=== PATIENT | male | born 1980 | race Caucasian/White ===

== ENCOUNTER 2018-04-22 08:43 | Outpatient (CLI) | payer BC ==
--- NOTE | 2018-04-22 15:45 | MRI Report ---
Reason: CHRONIC BILATERAL LOW BACK PAIN WITHOUT SCIATICA Procedure Date: 04/22/2018 Accession Number: [id number] / [id number] Procedure: MRI - Lumbar Spine W/O CPT Code: FULL RESULT: EXAM: MRI LUMBAR SPINE WITHOUT CONTRAST EXAM DATE: 04/22/2018 09:27 AM. CLINICAL HISTORY: Chronic bilateral low back pain without sciatica. COMPARISON: None. TECHNIQUE: Multiplanar, multisequence T1-weighted and fluid-sensitive sequences of the lumbar spine from T12 to S1 without contrast. Other: None. FINDINGS: Numbering assumes 5 [id number] lumbar-type vertebral bodies. The distal tip of the conus medullaris is seen at the level of the L1 superior endplate. No suspicious marrow replacement is seen. No acute or subacute endplate infraction is identified. Grade 1 retrolisthesis of L4 relative to L5 is present. L1 through L4: No posterior disk protrusion. L4-L5: Minimal loss of disk space height is seen. A minimal posterior disk protrusion is seen. A small amount of disk material extends inferior to the disk space. L5-S1: A minimal shallow right-sided disk protrusion is seen with a posterior annular fissure. IMPRESSION: 1. A minimal broad-based posterior disk protrusion is seen at L4-L5 with disk material extending inferior to the disk space. 2. A minimal right-sided disk protrusion with an annular fissure is seen at L5-S1. 3. No central canal or foraminal stenosis. 4. Grade 1 retrolisthesis of L4 relative to L5. Comment: The following findings are so common in adults without low back pain that while we report their presence, they must be interpreted with caution and in the context of the clinical situation. (Reference Faisalvik et al, Spine 2001) Prevalence of findings in patients without low back pain: Disk degeneration (any evidence): 92% Disk desiccation/T2 signal loss: 83% Disk height loss: 56% Disk bulge: 64% Disk protrusion: 32% Annular tear/high intensity zone: 38% RADIA
== END 2018-04-22 08:44 | disposition home or self-care (01) ==
LOC: DI 08:43
PROVIDERS: ATTEND Physical Medicine & Rehabilitation
DX: M51.26 Other intervertebral disc displacement, lumbar region (principal); G89.29 Other chronic pain
CPT/HCPCS: 72148

== ENCOUNTER 2019-06-13 09:45 | Outpatient (CLI) | payer BC ==
[2019-06-13] MEDS ORDERED: IOVERSOL 320 100 ML VIAL IVP ONE ×2 (10:01→11:06)
[2019-06-13] MEDS ORDERED: IOVERSOL 320 50 ML VIAL ONE (10:01)
[2019-06-13] MEDS ORDERED: IOVERSOL 320 50 ML VIAL PO ONE (11:06)
--- NOTE | 2019-06-16 00:44 | CT Report ---
Reason: VENTRAL HERNIA SMALL Procedure Date: 06/13/2019 Accession Number: [id number] / [id number] Procedure: CT - Abdomen/Pelvis W CPT Code: Final Report FULL RESULT: EXAM: CT ABDOMEN AND PELVIS EXAM DATE: 06/13/2019 11:30 AM. CLINICAL HISTORY: VENTRAL HERNIA SMALL. COMPARISONS: None. TECHNIQUE: Routine helical CT imaging was performed through the abdomen and pelvis. IV contrast: 100 cc Optiray 320. Enteric contrast: Yes. Reconstructions: Coronal and sagittal. In accordance with CT protocol optimization, one or more of the following dose reduction techniques were utilized for this exam: automated exposure control, adjustment of mA and/or KV based on patient size, or use of iterative reconstructive technique. FINDINGS: ABDOMEN: Lung Bases: Incompletely included lower lungs demonstrate a 5 mm nodule in the right lower lobe, probably benign. Heart size is within normal limits. No basilar effusions. Liver: Unremarkable. Spleen: Unremarkable. Pancreas: Unremarkable. Gallbladder/Bile Ducts: Gallbladder is unremarkable. Biliary tree is normal caliber. Adrenal Glands: Unremarkable. Kidneys: No mass, calculi, or hydronephrosis. Peritoneum/Mesentery/Bowel: No free fluid, free air, or collection. No intestinal obstruction or inflammation. The appendix is within normal limits. Lymph nodes: No mesenteric, periportal, or retroperitoneal lymphadenopathy. Vasculature: Abdominal aorta is nonaneurysmal. Portal vein is patent. Hepatic veins are patent. PELVIS: The bladder is unremarkable for the degree of distention. Prostate is present. No pelvic lymphadenopathy. Bones: No suspicious osseous lesions. Tiny fat filled midline anterior abdominal wall supraumbilical hernia measuring 8 mm (3/28). Small fat filled 9 mm umbilical hernia. IMPRESSION: No acute abnormalities. Tiny subcentimeter, fat filled supraumbilical and umbilical hernias. RADIA
== END 2019-06-13 09:46 | disposition home or self-care (01) ==
LOC: DI 09:45
PROVIDERS: ATTEND Surgery
DX: K42.9 Umbilical hernia without obstruction or gangrene (principal)
CPT/HCPCS: 74160; 74177

== ENCOUNTER 2019-12-23 09:15 | Outpatient (CLI) | payer BC ==
[2019-12-23 15:21] LABS: BASOPHILS % (AUTO) 0.7 %; EOSINOPHILS # (AUTO) 0.2 10^3/uL (0.0-0.7); EOSINOPHILS % (AUTO) 3.9 %; HGB - HEMOGLOBIN 15.6 g/dL (14.0-18.0); LYMPHOCYTES # (AUTO) 2.1 10^3/uL (1.5-3.5); LYMPHOCYTES % (AUTO) 36.4 %; MEAN CORPUSCULAR HEMOGLOBIN 31.3 pg (27.0-31.0); MEAN CORPUSCULAR HGB CONC 32.6 g/dL (32.0-36.0); MEAN CORPUSCULAR VOLUME 96.2 fL (80.0-94.0); MEAN PLATELET VOLUME 13.1 fL (7.4-11.4); MONOCYTES # (AUTO) 0.4 10^3/uL (0.0-1.0); MONOCYTES % (AUTO) 6.5 %; NEUTROPHILS % (AUTO) 52.1 %; PLT - PLATELET COUNT 164 10^3/uL (130-450); RED BLOOD COUNT 4.98 10^6/uL (4.70-6.10); RED CELL DISTRIBUTION WIDTH 12.9 % (12.0-15.0); WHITE BLOOD COUNT 5.7 x10^3/uL (4.8-10.8)
[2019-12-23 15:42] LABS: ALBUMIN 4.5 g/dL (3.2-5.5); ALKALINE PHOSPHATASE 48 IU/L (42-121); ALT ALANINE AMINOTRANSFERASE 18 IU/L (10-60); AST ASPARTATE AMINOTRANSFERASE 18 IU/L (10-42); BILIRUBIN,TOTAL 0.7 mg/dL (0.2-1.0); BUN - BLOOD UREA NITROGEN 22 mg/dL (6-20); CALCIUM 9.1 mg/dL (8.5-10.3); CARBON DIOXIDE - CO2 30 mmol/L (21-32); CHLORIDE 101 mmol/L (101-111); CHOL/HDL RATIO 3.1 (<5.0); CHOLESTEROL 212 mg/dL; CREATININE 1.2 mg/dL (0.6-1.2); GLUCOSE 96 mg/dL (70-100); HDL CHOLESTEROL 69 mg/dL; LDL CHOLESTEROL,CALCULATED 118 mg/dL; LDL/HDL RATIO 1.7 (<3.6); SODIUM 137 mmol/L (135-145); TOTAL PROTEIN 6.7 g/dL (6.7-8.2); VLDL CHOLESTEROL 25 mg/dL
[2019-12-23 16:00] LABS: CRP - C-REACTIVE PROTEIN < 1.0 mg/dL (0-1.0)
== END 2019-12-23 09:16 | disposition home or self-care (01) ==
LOC: LAB.S 09:15
PROVIDERS: ATTEND Family Medicine
DX: R53.83 Other fatigue (principal); Z82.49 Family history of ischemic heart disease and other diseases of the circulatory system
CPT/HCPCS: 36415; 80053; 80061; 83721; 84443; 85025; 85651; 86140

== ENCOUNTER 2020-06-03 07:00 | Outpatient (CLI) | payer BC | END 2020-06-03 23:59 | disposition home or self-care (01) | LOC: COV 07:00 | PROVIDERS: ATTEND Surgery | DX: Z01.812 Encounter for preprocedural laboratory examination (principal); K43.9 Ventral hernia without obstruction or gangrene; Z20.828 Contact with and (suspected) exposure to other viral communicable diseases ==

== ENCOUNTER 2020-06-08 10:32 | Day surgery (SDC) | payer BC ==
[2020-06-08] MEDS ORDERED: CEFAZOLIN SODIUM IN 0.9 % NACL 2 GM/100 ML BAG IV ONE (10:43)
[2020-06-08] MEDS ORDERED: BUPIVACAINE 0.25% PF 30 ML VIAL ONE (11:00)
[2020-06-08] MEDS ORDERED: LACTATED RINGERS 1,000 ML IV ONE ×2 (11:07→13:44)
[2020-06-08] MEDS ORDERED: MORPHINE 2 MG/ML CARPUJECT IVP PRN (11:21)
[2020-06-08] MEDS ORDERED: fentaNYL 100 MCG/2 ML VIAL IVP PRN (11:21)
[2020-06-08] MEDS ORDERED: NALOXONE 0.4 MG/ML VIAL IVP PRN (11:21)
[2020-06-08] MEDS ORDERED: ePHEDrine 50 MG/ML VIAL IVP PRN (11:21)
[2020-06-08] MEDS ORDERED: HYDROmorphone 0.5 MG/0.5 ML SYRINGE IVP PRN (11:21)
[2020-06-08] MEDS ORDERED: ONDANSETRON 4 MG/2 ML VIAL IVP PRN (11:21)
[2020-06-08] MEDS ORDERED: ATROPINE ABBOJECT 1 MG/10 ML SYRINGE IVP PRN (11:21)
[2020-06-08] MEDS ORDERED: METOCLOPRAMIDE 10 MG/2 ML VIAL IVP PRN (11:21)
--- NOTE | 2020-06-08 11:23 | ANESTHESIA ---
Pre-Anesthesia VS, & Labs - Diagnosis epigastric hernia - Procedure Open Epigastric hernia repair with mesh Vital Signs: Temp Pulse Resp BP Pulse Ox 36.7 C 58 L 18 122/81 H 100 06/08/20 10:41 06/08/20 10:41 06/08/20 10:41 06/08/20 10:41 06/08/20 10:41 Height: 5 ft 7 in Weight (kg): 76.8 kg Body Mass Index: 26.5 BMI Classification: Overweight - NPO >8 hours - Lab Results Lab results reviewed: Yes Home Medications and Allergies Home Medications: Ambulatory Orders No Known Home Medications 05/31/20 No Known Home Medications 05/31/20 Allergies/Adverse Reactions: Allergies Allergy/AdvReac Type Severity Reaction Status Date / Time No Known Drug Allergies Allergy Verified 05/31/20 14:41 Anes History & Medical History - Anesthetic History Anesthesia Complications: reports: No previous complications Family history of Anesthesia Complications: Denies Family history of Malignant Hyperthermia: Denies - Medical History Cardiovascular: reports: None Pulmonary: reports: None Gastrointestinal: reports: GERD Urinary: reports: None Musculoskeletal: reports: Chronic back pain Endocrine/Autoimmune: reports: None Skin: reports: None - Surgical History Orthopedic: Arthroscopic surgery, Other Exam General: Alert, Oriented x3, Cooperative, No acute distress Dental: WNL, Other (canker sore to lower lip) Mouth Openin Fingerbreadth Neck Mobility: Normal Mallampati classification: I Respiratory: Lungs clear, Normal breath sounds, No respiratory distress, No accessory muscle use Cardiovascular: Regular rate, Normal S1, Normal S2, No murmurs Plan Anesthesia Type: General Consent for Procedure(s) Verified and Reviewed: Yes Code Status: Attempt Resuscitation ASA classification: 1-Healthy patient Is this case an emergency?: No
[2020-06-08] MEDS ORDERED: LACTATED RINGERS 1,000 ML IV SCH (12:00)
[2020-06-08] MEDS ORDERED: fentaNYL 100 MCG/2 ML VIAL ONE (12:22)
[2020-06-08] MEDS ORDERED: MIDAZOLAM 2 MG/2 ML VIAL ONE (12:22)
[2020-06-08] MEDS ORDERED: PROPOFOL 200 MG/20 ML VIAL IVP ONE ×2 (12:24→13:04)
[2020-06-08] MEDS ORDERED: LIDOCAINE-MPF 2% 5 ML VIAL ONE (12:24)
[2020-06-08] MEDS ORDERED: DEXAMETHASONE 4 MG/ML VIAL ONE (12:45)
[2020-06-08] MEDS ORDERED: KETOROLAC 30 MG/ML VIAL ONE (12:45)
[2020-06-08] MEDS ORDERED: ONDANSETRON 4 MG/2 ML VIAL ONE (12:45)
[2020-06-08] MEDS ORDERED: BUPIVACAINE 0.5% PF 30 ML VIAL INFIL ONE ×2 (12:51)
[2020-06-08] MEDS ORDERED: HYDROcod/ACETAM 10 MG/325 MG TABLET PO PRN (14:01)
--- NOTE | 2020-06-08 14:05 | OPERATIVE REPORT ---
Operative Report - General Procedure Date: 06/08/20 Planned Procedure: open epigastric ventral hernia repair with mesh Pre-Op Diagnosis: epigastric hernia Procedure Performed: open epigastric hernia repair with mesh Post Op Diagnosis: same - Procedure Note Primary Surgeon: donna melendez Anesthesia Technique: General LMA, Local Estimated Blood Loss (mL): 0 Findings: as above Complications: none
--- NOTE | 2020-06-08 14:49 | ANESTHESIA POST OP EVALUATION ---
Anesthesia Post Eval - Post Anesthesia Eval Vitals: Last Vital Signs Temp 36.9 C 06/08/20 14:35 Pulse 74 06/08/20 14:35 Resp 15 06/08/20 14:35 BP 118/72 06/08/20 14:35 Pulse Ox 99 06/08/20 14:35 CV Function Including HR & BP: positive: Stable Pain Control: positive: Satisfactory Nausea & Vomiting: positive: Negative Mental Status: positive: Baseline Respiratory Status: Airway Patent Hydration Status: Satisfactory Anesthesia Complications: positive: None
[2020-06-08 15:03] VITALS: BP 118/77
--- NOTE | 2020-06-09 09:40 | OPERATIVE REPORT ---
DATE OF SERVICE: 06/08/2020 Physician: Jamey Fisher MD PREOPERATIVE DIAGNOSIS: Symptomatic epigastric hernia. POSTOPERATIVE DIAGNOSIS: Symptomatic epigastric hernia. PROCEDURE: Open repair of epigastric hernia with mesh. SURGEON: Jamey Fisher MD TITLE MANAGER: None. ANESTHESIA 1. Laryngeal mask anesthesia. 2. Local anesthesia with Marcaine. COMPLICATIONS: None. SPECIMEN: None. ESTIMATED BLOOD LOSS: None. DRAINS: None. FINDINGS: A 2 cm fascial defect with nearly 4 cm diameter herniated preperitoneal adipose tissue. PROSTHETIC: A 1-inch x 2-inch polypropylene mesh placed preperitoneal. INDICATIONS FOR PROCEDURE: The patient is a healthy active 40-year-old gentleman with a quite sympto matic epigastric hernia. It is now interfering with his activities due to pain. He presents for ope n repair with mesh. Risks discussed, alternatives discussed, all questions answered, and consent obt ained. DETAILS OF PROCEDURE: The patient was properly identified, brought to the operating room, and placed in the supine position. Sequential compression devices were placed. Laryngeal mask anesthesia was induced. He was prepped and draped in a sterile fashion and given preoperative antibiotics. A 3 cm incision was made directly over the palpable hernia defect. Dissection proceeded sharply or with cut ting current. The herniated incarcerated preperitoneal adipose tissue was mobilized away from surrou nding subcutaneous tissue down to the fascial defect edge. The preperitoneal adipose tissue was then carefully released from the fascial edge and reduced. A pocket was created in the preperitoneal spa ce for mesh placement. Approximately a 1-inch wide x 2-inch tall polypropylene mesh was placed benea th the fascia and musculature and secured with 9 interrupted 0 Ethibond sutures. The fascia was then closed over the mesh with additional interrupted 0 Ethibond sutures. The mesh lay in good position without tension. Subcutaneous tissue was closed with interrupted 2-0 Vicryl suture. Buried interrup jd subdermal 3-0 Vicryl sutures were then placed. Skin was closed with a running 4-0 Monocryl subcu ticular suture. Steri-Strips and dressing were applied. He tolerated the procedure well. TD: 06/08/2020 14:11
== END 2020-06-08 10:33 | disposition home or self-care (01) ==
LOC: SDS 10:32
PROVIDERS: ATTEND Surgery
DX: K43.9 Ventral hernia without obstruction or gangrene (principal)
CPT/HCPCS: 49560; 49568; C1781; J0690; J7120

== ENCOUNTER 2021-06-14 08:15 | Outpatient (CLI) | payer BC ==
--- NOTE | 2021-06-14 17:14 | XRAY Report ---
PROCEDURE: Knee 4 View RT INDICATIONS: R KNEE PX TECHNIQUE: 4 views of the right knee(s) were acquired. COMPARISON: None. FINDINGS: Bones: No fractures or dislocations. No suspicious bony lesions. Soft tissues: No joint effusion. No suspicious soft tissue calcifications. IMPRESSION: No osseous lesion. If there are persistent symptoms or continued clinical concern for pathology, then repeat plain film radiographs (7-10 days) or advanced imaging (CT, MR, bone scan) should be consider ed for further evaluation. Reviewed by: Mara Pugh MD, PhD on 06/14/2021 5:12 PM PST Approved by: Mara Pugh MD, PhD on 06/14/2021 5:12 PM [facility] Station ID: [id number]
== END 2021-06-14 23:59 | disposition home or self-care (01) ==
LOC: DI.N 08:15
PROVIDERS: ATTEND Physician Assistant
DX: M25.561 Pain in right knee (principal)